=== PATIENT | male | born 1985 | race Caucasian/White ===

== ENCOUNTER 2017-12-23 10:51 | Inpatient (IN) | payer OTHER ==
[2017-12-23 14:16] VITALS: BMI 36.0
--- NOTE | 2017-12-23 15:37 | HP ---
COWS - Scale Resting Pulse: 2= [place] 101-120 Sweatin=Flushed/Facial Moisture Restless Observation: 3= Extraneous Movement Pupil Size: 1= Pupils >than Normal Bone or Joint Aches: 2= Severe Diffuse Aches Runny Nose/ Eye Tearin= Runny Nose/Eyes GI Upset > 30mins: 2= Nausea/Diarrhea Tremor Observation: 2= Slight Tremor Visible Yawning Observation: 1= 1-2x During Session Anxiety or Irritability: 2=Irritable/Anxious Goose Flesh Skin: 3=Piloerection COWS Score: 22 Admission ROS S - HPI Chief Complaint: "' I'm addicted to heroin and opiates and I'm trying to get off" Allergies/Adverse Reactions: Allergies Allergy/AdvReac Type Severity Reaction Status Date / Time No Known Allergies Allergy Verified 12/23/17 15:50 History of Present Illness: 32 year old male with longstanding h/o opiod and xanax dependence presents for detox. He reports sobriety for 1 year with relapse early this year. He has had previous rehab as well. This is his 1st treatment at [facility]. Exam Limitations: No Limitations - Ebola screening Have you traveled outside of the country in the last 21 days: No (N) Have you had contact with anyone from an Ebola affected area: No Have you been sick,other than usual withdrawal symptoms: No Do you have a fever: No - Review of Systems Constitutional: Chills, Loss of Appetite, Changes in sleep EENT: reports: Blurred Vision, Nose Congestion Respiratory: reports: Cough, SOB with Exertion Cardiac: reports: Chest Pain (on and off) GI: reports: Nausea, Poor Appetite, Poor Fluid Intake, Abdominal cramping : reports: No Symptoms Reported Musculoskeletal: reports: Joint Pain, Muscle Pain, Muscle Weakness Integumentary: reports: No Symptoms Reported Neuro: reports: Tremors Endocrine: reports: No Symptoms Reported Hematology: reports: Anemia Psychiatric: reports: Anxious, Depressed Patient History - Patient Medical History Hx Anemia: No Hx Asthma: No Hx Chronic Obstructive Pulmonary Disease (COPD): No Hx Cancer: No Hx Cardiac Disorders: No Hx Congestive Heart Failure: No Hx Hypertension: No Hx Hypercholesterolemia: No Hx Pacemaker: No HX Cerebrovascular Accident: No Hx Seizures: No Hx Dementia: No Hx Diabetes: No Hx Gastrointestinal Disorders: No Hx Liver Disease: No Hx Genitourinary Disorders: No Hx Sexually Transmitted Disorders: No Hx Renal Disease (ESRD): No Hx Thyroid Disease: No Hx Human Immunodeficiency Virus (HIV): No Hx Hepatitis C: No Hx Depression: Yes Hx Suicide Attempt: No Hx Bipolar Disorder: No Hx Schizophrenia: No - Patient Surgical History Past Surgical History: No - PPD History Previous Implant?: Yes Documented Results: Negative w/o proof Implanted On Prior [facility] Admission?: No PPD to be Administered?: Yes - Smoking Cessation Smoking history: Current every day smoker Have you smoked in the past 12 months: Yes Aproximately how many cigarettes per day: 20 Hx Chewing Tobacco Use: No Initiated information on smoking cessation: Yes 'Breaking Loose' booklet given: 12/23/17 - Substance & Tx. History Hx Alcohol Use: No Hx Substance Use: Yes Substance Use Type: Heroin, Tranquilizers Hx Substance Use Treatment: Yes - Substances Abused Heroin Route: Injection Frequency: Daily Amount used: 10 bags Age of first use: 15 Date of Last Use: 12/23/17 Alprazolam (Xanax) Route: Oral Frequency: Daily Amount used: 4mg Age of first use: 19 Date of Last Use: 12/23/17 Admission Physical Exam BHS - Vital Signs Vital Signs: Vital Signs - 24 hr 12/23/17 14:14 Temperature 97.6 F Pulse Rate 109 H Respiratory 20 Rate Blood Pressure 155/81 - Physical General Appearance: Yes: No Apparent Distress, Appropriately Dressed HEENTM: Yes: EOMI, Hearing grossly Normal, Normal ENT Inspection, Normocephalic , Normal Voice, MICHAEL Respiratory: Yes: Chest Non-Tender, Lungs Clear, No Respiratory Distress, No Accessory Muscle Use Neck: Yes: No masses,lesions,Nodules, Supple Breast: Yes: Breast Exam Deferred Cardiology: Yes: Regular Rhythm, Regular Rate, S1, S2 Abdominal: Yes: Normal Bowel Sounds, Non Tender, Soft Genitourinary: Yes: Within Normal Limits Back: Yes: Normal Inspection Extremities: Yes: Normal Capillary Refill, Normal Inspection, Non-Tender Neurological: Yes: 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 NML intact, Fully Oriented, Alert, Normal Response Integumentary: Yes: Normal Color, 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) Lymphatic: Yes: Within Normal Limits - Diagnostic (1) Nicotine dependence unspecified, with withdrawal Current Visit: Yes Status: Acute Qualifiers: Nicotine product type: cigarettes Qualified Code(s): F17.213 - Nicotine dependence, cigarettes, with withdrawal (2) Opioid dependence Current Visit: Yes Status: Acute Qualifiers: Substance use status: uncomplicated Qualified Code(s): F11.20 - Opioid dependence, uncomplicated (3) Sedative hypnotic or anxiolytic dependence Current Visit: Yes Status: Acute (4) GERD (gastroesophageal reflux disease) Current Visit: Yes Status: Acute Qualifiers: Esophagitis presence: without esophagitis Qualified Code(s): K21.9 - Gastro -esophageal reflux disease without esophagitis Cleared for Admission BHS - Detox or Rehab S Level of Care: Medically Managed Detox Regimen/Protocol: Methadone/Valium S Breath Alcohol Content Breath Alcohol Content: 0 Urine Drug Screen - Results Drug Screen Negative: No Urine Drug Screen Results: THC-Marijuana, OPI-Opiates, MTD-Methadone, TCA- Tricyclic Antidepress, OXY-Oxycodone
[2017-12-23] MEDS ORDERED: diazePAM 5 MG TABLET PO ONE (15:51)
[2017-12-23] MEDS ORDERED: MENTHOL/PHENOL 1 EACH UD MM PRN (15:51)
[2017-12-23] MEDS ORDERED: MAG HYDROX/AL HYDROX/SIMETH 30 ML UNIT-DOSE CUP PO PRN (15:51)
[2017-12-23] MEDS ORDERED: guaiFENesin/D-METHORPHAN HB 10 ML UNIT-DOSE CUPS PO PRN (15:51)
[2017-12-23] MEDS ORDERED: LOPERAMIDE HCL 2 MG CAPSULE PO PRN (15:51)
[2017-12-23] MEDS ORDERED: MAGNESIUM HYDROX 2400MG/30ML ORAL SUSPENSION 30 ML CUP PO PRN (15:51)
[2017-12-23] MEDS ORDERED: P-EPHED 60MG/TRIPROLIDI 2.5MG TABLET PO PRN (15:51)
[2017-12-23] MEDS ORDERED: METHADONE HCL 10 MG TABLET (FOR DETOX USE ONLY) PO ONE ×2 (15:51→23:00)
[2017-12-23] MEDS ORDERED: NICOTINE POLACRILEX 2 MG GUM BUC PRN (15:51)
[2017-12-23] MEDS ORDERED: MAGNESIUM CITRATE 300 ML BOTTLE PO PRN (15:51)
[2017-12-23] MEDS: hydrOXYzine PAMOATE 50 MG CAPSULE (FP) PO PRN (19:50)
[2017-12-23] MEDS: ACETAMINOPHEN 325 MG TABLET (FP) PO PRN (19:51)
[2017-12-23] MEDS: NICOTINE 14 MG/24 HOURS TOPICAL PATCH TD SCH (19:52)
[2017-12-23] MEDS: diazePAM 5 MG TABLET PO SCH (22:10)
[2017-12-23] MEDS: THIAMINE HCL 100 MG TABLET (FP) PO SCH (22:10)
[2017-12-23] MEDS: MELATONIN 5 MG TABLETS PO PRN (22:11)
[2017-12-24 02:09] LABS: URINE APPEARANCE TURBID; URINE BILIRUBIN NEGATIVE (<2.0 mg/dL); URINE COLOR YELLOW; URINE GLUCOSE (UA) NEGATIVE (NEGATIVE); URINE KETONE NEGATIVE (NEGATIVE); URINE LEUK ESTERASE NEGATIVE (NEGATIVE); URINE NITRITE NEGATIVE (NEGATIVE)
[2017-12-24 02:34] LABS: URINE PROTEIN 1+ (NEGATIVE)
[2017-12-24 02:46] LABS: URINE HYALINE CAST 31 /lpf
[2017-12-24] MEDS: diazePAM 5 MG TABLET PO SCH ×3 (06:06→22:28)
[2017-12-24] MEDS: ACETAMINOPHEN 325 MG TABLET (FP) PO PRN ×2 (06:08→18:40)
--- NOTE | 2017-12-24 07:52 | CONSULT ---
[facility] Psychiatric Consult - Data Date of interview: 12/24/17 Admission source: Self-Referred Identifying data: Mr Luna is a 32 years old single male, unemployed with no source of income, domiciled living with his father seeking detox treatment for opioid and benzodiazepine Substance Abuse History: Reports history of heroin and xanax use. Refer to addiction counselor's summary for further information Medical History: Unremarkable. Smoked cigarettes 1ppd Psychiatric History: Denies history of previous psychiatric treatment. However, reports feeling depressed, anxious and sleeping poorly Physical/Sexual Abuse/Trauma History: Denies history of emotional, physical or sexual abuse as well as DV relationship Additional Comment: Reports history of one previous misdemeanor arrest. Denies being on probation at present Mental Status Exam - Mental Status Exam Alert and Oriented to: Time, Place, Person Cognitive Function: Fair Patient Appearance: Well Groomed Mood: Depressed, Anxious Affect: Appropriate Patient Behavior: Cooperative Speech Pattern: Clear Voice Loudness: Normal Thought Process: Intact, Goal Oriented Thought Disorder: Not Present Hallucinations: Denies Suicidal Ideation: Denies Homicidal Ideation: Denies Insight/Judgement: Fair Sleep: Poorly Appetite: Good Muscle strength/Tone: Normal Gait/Station: Normal Psychiatric Findings - Problem List ([place] 1, 2,3) (1) Substance induced mood disorder Current Visit: Yes Status: Acute (2) Substance-induced sleep disorder Current Visit: Yes Status: Acute (3) Opioid dependence with withdrawal Current Visit: Yes Status: Acute (4) Sedative hypnotic or anxiolytic dependence Current Visit: Yes Status: Acute (5) Nicotine dependence Current Visit: Yes Status: Chronic - Initial Treatment Plan Initial Treatment Plan: 1) Start Ambien 10 mg po HS prn for insomnia. 2) Continue inpatient detoxification
[2017-12-24] MEDS ORDERED: METHADONE HCL 10 MG TABLET (FOR DETOX USE ONLY) PO SCH (10:00)
[2017-12-24 10:13] LABS: MCHC 30.2 g/dl (32.0-35.9); PLATELET COUNT 482 K/MM3 (134-434)
[2017-12-24 10:17] LABS: HEMATOCRIT 22.4 % (35.4-49); MEAN CELL VOLUME 60.5 fl (80-96); MEAN PLT VOLUME 8.2 fl (7.5-11.1); RDW 19.8 % (11.9-15.9); WHITE BLOOD COUNT 20.3 K/mm3 (4.0-10.0)
[2017-12-24 10:19] LABS: MCH 18.2 pg (25.7-33.7)
[2017-12-24 10:20] LABS: ALBUMIN 1.7 g/dl (3.4-5.0); ANION GAP 10 (8-16); BILIRUBIN,TOTAL 0.6 mg/dL (0.2-1.0); BLOOD UREA NITROGEN 12 mg/dL (7-18); CALCIUM 7.9 mg/dL (8.5-10.1); CHLORIDE 104 mmol/L (98-107); CO2 28 mmol/L (21-32); CREATININE 0.9 mg/dL (0.7-1.3); GLUCOSE,RANDOM 106 mg/dL (74-106); SGPT/ALT 19 U/L (12-78); SODIUM 142 mmol/L (136-145); TOT PROT 6.7 g/dl (6.4-8.2)
[2017-12-24 10:21] LABS: ALK PHOS 311 U/L (45-117)
[2017-12-24 10:22] LABS: HEMOGLOBIN 6.8 GM/dL (11.7-16.9); POTASSIUM 4.1 mmol/L (3.5-5.1); SGOT/AST 31 U/L (15-37)
[2017-12-24] MEDS: diazePAM 5 MG TABLET PO PRN ×2 (10:55→18:42)
[2017-12-24] MEDS: NICOTINE 14 MG/24 HOURS TOPICAL PATCH TD SCH (10:55)
[2017-12-24] MEDS: PRENATAL VITAMINS W/ FOLIC ACID TABLET (FP) PO SCH (10:55)
--- NOTE | 2017-12-24 17:30 | PN ---
BHS COWS - Scale Resting Pulse: 1= [place] 81-100 Sweatin= Chills/Flushing Restless Observation: 0= Sits Still Pupil Size: 0= Normal to Room Light Bone or Joint Aches: 0= None Runny Nose/ Eye Tearin= None GI Upset > 30mins: 0= None Tremor Observation of Outstretched Hands: 1= Tremor [place], Not Seen Yawning Observation: 0= None Anxiety or Irritability: 0= None Goose Flesh Skin: 0=Smooth Skin COWS Score: 3 BHS Progress Note (SOAP) Subjective: pt states he is feeling fine and is getting some needed rest- denies chest pain , denies bleeding- now and no recent bleeding, denies h/o anemia, Objective: 12/24/17 17:25 Vital Signs - 24 hr 12/23/17 12/24/17 12/24/17 23:01 00:30 06:38 Temperature 98.9 F 97.1 F L Pulse Rate 106 H 120 H Respiratory 21 18 18 Rate Blood Pressure 127/79 136/78 12/24/17 12/24/17 12/24/17 09:28 13:45 15:54 Temperature 100.9 F H 98.1 F 98.9 F Pulse Rate 104 H 97 H Respiratory 20 20 Rate Blood Pressure 120/75 105/64 Laboratory Tests 12/24/17 12/24/17 12/24/17 01:00 07:45 07:45 WBC 20.3 H RBC 3.70 L Hgb 6.8 L* Hct 22.4 L MCV 60.5 L MCH 18.2 L MCHC 30.2 L RDW 19.8 H Plt Count 482 H MPV 8.2 Sodium 142 Potassium 4.1 Chloride 104 Carbon Dioxide 28 Anion Gap 10 BUN 12 Creatinine 0.9 Creat Clearance w eGFR > 60 Random Glucose 106 Calcium 7.9 L Total Bilirubin 0.6 AST 31 ALT 19 Alkaline Phosphatase 311 H Total Protein 6.7 Albumin 1.7 L Urine Color Yellow Urine Appearance Turbid Urine pH 5.0 Ur Specific [place] 1.027 Urine Protein 1+ H Urine Glucose (UA) Negative Urine Ketones Negative Urine Blood Negative Urine Nitrite Negative Urine Bilirubin Negative Urine Urobilinogen 2.0 Ur Leukocyte Esterase Negative Urine WBC (Auto) 69 Urine RBC (Auto) 2 Hyaline Casts 31 RPR Titer HIV 1&2 Antibody Screen HIV P24 Antigen 07/29/18 07/29/18 07:45 07:45 WBC RBC Hgb Hct MCV MCH MCHC RDW Plt Count MPV Sodium Potassium Chloride Carbon Dioxide Anion Gap BUN Creatinine Creat Clearance w eGFR Random Glucose Calcium Total Bilirubin AST ALT Alkaline Phosphatase Total Protein Albumin Urine Color Urine Appearance Urine pH Ur Specific [place] Urine Protein Urine Glucose (UA) Urine Ketones Urine Blood Urine Nitrite Urine Bilirubin Urine Urobilinogen Ur Leukocyte Esterase Urine WBC (Auto) Urine RBC (Auto) Hyaline Casts RPR Titer Nonreactive HIV 1&2 Antibody Screen Negative HIV P24 Antigen Negative severe anemia-Hct 24 high pulse rate lungs clear heart tachy, regular rhythm Assessment: 12/24/17 17:24 32 year old male with longstanding h/o opiod and xanax dependence sever anemia- d/w pt the need for evaluatio of this at the hospital- pt refused to go to hospital-saying he is feeling fine and that it took him a long time to get a detox bed and needs to continue to rest. pt states will let staff know if he needs any further assitance. 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 refusal signed labs ordered for tomorrow 12/24/17 17:30
[2017-12-24] MEDS: MELATONIN 5 MG TABLETS PO PRN (22:28)
[2017-12-24] MEDS: THIAMINE HCL 100 MG TABLET (FP) PO SCH (22:28)
[2017-12-24] MEDS: IBUPROFEN 400 MG TABLET (FP) PO PRN (22:29)
[2017-12-25] MEDS: hydrOXYzine PAMOATE 50 MG CAPSULE (FP) PO PRN (08:40)
[2017-12-25] MEDS ORDERED: METHADONE HCL 5 MG TABLET (FOR DETOX USE ONLY) PO SCH (10:00)
[2017-12-25] MEDS: diazePAM 5 MG TABLET PO SCH ×2 (10:24→22:30)
[2017-12-25] MEDS: PRENATAL VITAMINS W/ FOLIC ACID TABLET (FP) PO SCH (10:24)
[2017-12-25] MEDS: NICOTINE 14 MG/24 HOURS TOPICAL PATCH TD SCH (10:25)
--- NOTE | 2017-12-25 10:53 | EKG ---
Test Reason : Blood Pressure : / mmHG Vent. Rate : 115 BPM Atrial Rate : 115 BPM P-R Int : 098 ms QRS Dur : 094 ms QT Int : 296 ms P-R-T Axes : 022 -02 021 degrees QTc Int : 409 ms SINUS TACHYCARDIA WITH SHORT MO WITH OCCASIONAL PREMATURE VENTRICULAR COMPLEXES WITH JUNCTIONAL ESCAPE COMPLEXES NONSPECIFIC ST ABNORMALITY ABNORMAL ECG NO PREVIOUS ECGS AVAILABLE Confirmed by SAVANNA ALLISON MD ([id number]) on 12/25/2017 10:53:14 AM Referred By: Confirmed By:SAVANNA ALLISON MD
[2017-12-25 11:07] LABS: BASO % 0.2 % (0-2.0); EOS % 0.2 % (0-4.5); HEMATOCRIT 22.9 % (35.4-49); LYMPH % 9.7 % (8-40); MCHC 30.1 g/dl (32.0-35.9); MEAN CELL VOLUME 60.1 fl (80-96); MEAN PLT VOLUME 8.7 fl (7.5-11.1); MONO % 9.6 % (3.8-10.2); NEUT % 80.3 % (42.8-82.8); PLATELET COUNT 483 K/MM3 (134-434); RBC 3.81 M/mm3 (4.00-5.60); RDW 19.9 % (11.9-15.9); WHITE BLOOD COUNT 14.3 K/mm3 (4.0-10.0)
[2017-12-25 11:21] LABS: MCH 18.1 pg (25.7-33.7)
[2017-12-25 11:28] LABS: HEMOGLOBIN 6.9 GM/dL (11.7-16.9)
--- NOTE | 2017-12-25 11:58 | PN ---
[facility] CIWA - CIWA Score Nausea/Vomitin-No Nausea/No Vomiting Muscle Tremors: 3 Anxiety: 4-Mod. Anxious/Guarded Agitation: 3 Paroxysmal Sweats: 1-Minimal Palms Moist Orientation: 0-Oriented Tacttile Disturbances: 0-None Auditory Disturbances: 0-None Visual Disturbances: 0-None Headache: 0-None Present CIWA-Ar Total Score: 11 BHS COWS - Scale Resting Pulse: 2= [place] 101-120 Sweatin= No chills or Flushing Restless Observation: 0= Sits Still Pupil Size: 2= Moderately Dilated Bone or Joint Aches: 1= Mild Discomfort Runny Nose/ Eye Tearin= None GI Upset > 30mins: 0= None Tremor Observation of Outstretched Hands: 2= Slight Tremor Visible Yawning Observation: 1= 1-2x During Session Anxiety or Irritability: 1=Feels Anxious/Irritable Goose Flesh Skin: 0=Smooth Skin COWS Score: 9 [facility] Progress Note (SOAP) Subjective: PT REPORTS ANXIETY AND INTERMITTENT SLEEP. DENIES CHEST PAIN, DIZZINESS OR HEADACHE. Objective: 12/25/17 11:56 Vital Signs 12/25/17 12/25/17 06:24 09:25 Temperature 97.1 F L 98.6 F Pulse Rate 107 H 96 H Respiratory 20 20 Rate Blood Pressure 133/75 101/69 Laboratory Tests 12/24/17 12/24/17 12/24/17 01:00 07:45 07:45 WBC 20.3 H RBC 3.70 L Hgb 6.8 L* Hct 22.4 L MCV 60.5 L MCH 18.2 L MCHC 30.2 L RDW 19.8 H Plt Count 482 H MPV 8.2 Absolute Neuts (auto) Neutrophils % Lymphocytes % Monocytes % Eosinophils % Basophils % Nucleated RBC % Sodium 142 Potassium 4.1 Chloride 104 Carbon Dioxide 28 Anion Gap 10 BUN 12 Creatinine 0.9 Creat Clearance w eGFR > 60 Random Glucose 106 Calcium 7.9 L Total Bilirubin 0.6 AST 31 ALT 19 Alkaline Phosphatase 311 H Total Protein 6.7 Albumin 1.7 L Serum Folate Urine Color Yellow Urine Appearance Turbid Urine pH 5.0 Ur Specific [place] 1.027 Urine Protein 1+ H Urine Glucose (UA) Negative Urine Ketones Negative Urine Blood Negative Urine Nitrite Negative Urine Bilirubin Negative Urine Urobilinogen 2.0 Ur Leukocyte Esterase Negative Urine WBC (Auto) 69 Urine RBC (Auto) 2 Hyaline Casts 31 RPR Titer HIV 1&2 Antibody Screen HIV P24 Antigen 12/24/17 12/24/17 12/25/17 07:45 07:45 07:00 WBC 14.3 H RBC 3.81 L Hgb 6.9 L* Hct 22.9 L MCV 60.1 L MCH 18.1 L MCHC 30.1 L RDW 19.9 H Plt Count 483 H MPV 8.7 Absolute Neuts (auto) 11.5 Neutrophils % 80.3 Lymphocytes % 9.7 Monocytes % 9.6 Eosinophils % 0.2 Basophils % 0.2 Nucleated RBC % 0 Sodium Potassium Chloride Carbon Dioxide Anion Gap BUN Creatinine Creat Clearance w eGFR Random Glucose Calcium Total Bilirubin AST ALT Alkaline Phosphatase Total Protein Albumin Serum Folate Urine Color Urine Appearance Urine pH Ur Specific [place] Urine Protein Urine Glucose (UA) Urine Ketones Urine Blood Urine Nitrite Urine Bilirubin Urine Urobilinogen Ur Leukocyte Esterase Urine WBC (Auto) Urine RBC (Auto) Hyaline Casts RPR Titer Nonreactive HIV 1&2 Antibody Screen Negative HIV P24 Antigen Negative 12/25/17 07:00 WBC RBC Hgb Hct MCV MCH MCHC RDW Plt Count MPV Absolute Neuts (auto) Neutrophils % Lymphocytes % Monocytes % Eosinophils % Basophils % Nucleated RBC % Sodium Potassium Chloride Carbon Dioxide Anion Gap BUN Creatinine Creat Clearance w eGFR Random Glucose Calcium Total Bilirubin AST ALT Alkaline Phosphatase Total Protein Albumin Serum Folate 5 Urine Color Urine Appearance Urine pH Ur Specific [place] Urine Protein Urine Glucose (UA) Urine Ketones Urine Blood Urine Nitrite Urine Bilirubin Urine Urobilinogen Ur Leukocyte Esterase Urine WBC (Auto) Urine RBC (Auto) Hyaline Casts RPR Titer HIV 1&2 Antibody Screen HIV P24 Antigen Assessment: 12/25/17 11:57 WITHDRAWAL SX Plan: CONTINUE DETOX
[2017-12-25] MEDS: FERROUS SO4 325 MG TABLET (FP) PO SCH ×2 (12:32→17:58)
[2017-12-25 13:00] LABS: ANISOCYTOSIS 1+; MACROCYTOSIS 1+
[2017-12-25 13:01] LABS: OVALOCYTE 1+
--- NOTE | 2017-12-25 14:49 | PN ---
[facility] Progress Note Note: SPOKE TO PATIENT AMINATA TODAY RE:NEED TO FOLOW UP AT [facility] ER FOR ANEMIA WORK-UP AND TREATMENT. PT REFUSED STATING 'I AM LEAVING TOMORROW ANYWAY. I'LL JUST GO TO THE HOSPITAL ON MY OWN AFTER I LEAVE". REASSURED PT HE WILL BE GOING TO SAME [facility] BUT AT [facility] AND NOTHING ABOUT HIS DETOX WILL CHANGE IF WE SEND HIM OVER BUT HE DECLINED TODAY AGAIN. PT REPORTS HE HAS NO PMD BECAUSE HE RECENTLY MOVED FROM [place] WHERE HE HAD BEEN LIVING SINCE PAST TWO YEARS TO [place] 2 MONTHS AGO. PT STATES HE LIVES CLOSE TO [facility] AND MIGHT BE GOING THERE AFTER DISCHARGE. PT ALSO REFUSED TO F/U WITH ABNORMAL LAB YESTERDAY(SEE PHYSICIAN NOTE, 12/24/17) . DENIES DIZZINESS,CHEST PAIN OR FATIGUE. PT WAS SEEN IN BED BUT REPORTS OOB TO MED WINDOW AND DAY ROOM NEEDED WITH NO DISCOMFORT. Laboratory Tests 12/24/17 12/24/17 12/24/17 01:00 07:45 07:45 WBC 20.3 H RBC 3.70 L Hgb 6.8 L* Hct 22.4 L MCV 60.5 L MCH 18.2 L MCHC 30.2 L RDW 19.8 H Plt Count 482 H MPV 8.2 Absolute Neuts (auto) Neutrophils % Lymphocytes % Monocytes % Eosinophils % Basophils % Nucleated RBC % Hypochromia Anisocytosis Microcytosis Macrocytosis Ovalocytes Sodium 142 Potassium 4.1 Chloride 104 Carbon Dioxide 28 Anion Gap 10 BUN 12 Creatinine 0.9 Creat Clearance w eGFR > 60 Random Glucose 106 Calcium 7.9 L Total Bilirubin 0.6 AST 31 ALT 19 Alkaline Phosphatase 311 H Total Protein 6.7 Albumin 1.7 L Vitamin B12 Serum Folate Urine Color Yellow Urine Appearance Turbid Urine pH 5.0 Ur Specific [place] 1.027 Urine Protein 1+ H Urine Glucose (UA) Negative Urine Ketones Negative Urine Blood Negative Urine Nitrite Negative Urine Bilirubin Negative Urine Urobilinogen 2.0 Ur Leukocyte Esterase Negative Urine WBC (Auto) 69 Urine RBC (Auto) 2 Hyaline Casts 31 RPR Titer HIV 1&2 Antibody Screen HIV P24 Antigen 12/24/17 12/24/17 12/25/17 07:45 07:45 07:00 WBC 14.3 H RBC 3.81 L Hgb 6.9 L* Hct 22.9 L MCV 60.1 L MCH 18.1 L MCHC 30.1 L RDW 19.9 H Plt Count 483 H MPV 8.7 Absolute Neuts (auto) 11.5 Neutrophils % 80.3 Lymphocytes % 9.7 Monocytes % 9.6 Eosinophils % 0.2 Basophils % 0.2 Nucleated RBC % 0 Hypochromia 1+ Anisocytosis 1+ Microcytosis 1+ Macrocytosis 1+ Ovalocytes 1+ Sodium Potassium Chloride Carbon Dioxide Anion Gap BUN Creatinine Creat Clearance w eGFR Random Glucose Calcium Total Bilirubin AST ALT Alkaline Phosphatase Total Protein Albumin Vitamin B12 Serum Folate Urine Color Urine Appearance Urine pH Ur Specific [place] Urine Protein Urine Glucose (UA) Urine Ketones Urine Blood Urine Nitrite Urine Bilirubin Urine Urobilinogen Ur Leukocyte Esterase Urine WBC (Auto) Urine RBC (Auto) Hyaline Casts RPR Titer Nonreactive HIV 1&2 Antibody Screen Negative HIV P24 Antigen Negative 12/25/17 07:00 WBC RBC Hgb Hct MCV MCH MCHC RDW Plt Count MPV Absolute Neuts (auto) Neutrophils % Lymphocytes % Monocytes % Eosinophils % Basophils % Nucleated RBC % Hypochromia Anisocytosis Microcytosis Macrocytosis Ovalocytes Sodium Potassium Chloride Carbon Dioxide Anion Gap BUN Creatinine Creat Clearance w eGFR Random Glucose Calcium Total Bilirubin AST ALT Alkaline Phosphatase Total Protein Albumin Vitamin B12 1751 H Serum Folate 5 Urine Color Urine Appearance Urine pH Ur Specific [place] Urine Protein Urine Glucose (UA) Urine Ketones Urine Blood Urine Nitrite Urine Bilirubin Urine Urobilinogen Ur Leukocyte Esterase Urine WBC (Auto) Urine RBC (Auto) Hyaline Casts RPR Titer HIV 1&2 Antibody Screen HIV P24 Antigen REPEAT CBC NOT SIGNIFICANTLY DIFFERENT FROM PREVIOUS RESULT. A COPY OF LAB RESULTS WILL BE GIVEN TO PATIENT. DISCUSSED WITH THIS PT WHO SAYS HE WILL FOLLOW UP ON HIS OWN. PLAN: FEOSOL ORDERED. MONITOR AND MAINTAIN SAFETY. TRANSFER TO ER IF NEED BE.
[2017-12-25] MEDS: ACETAMINOPHEN 325 MG TABLET (FP) PO PRN (17:59)
[2017-12-25 20:46] LABS: URINE APPEARANCE TURBID; URINE BILIRUBIN NEGATIVE (<2.0 mg/dL); URINE COLOR AMBER; URINE GLUCOSE (UA) NEGATIVE (NEGATIVE); URINE KETONE NEGATIVE (NEGATIVE); URINE LEUK ESTERASE NEGATIVE (NEGATIVE); URINE NITRITE NEGATIVE (NEGATIVE); URINE UROBILINOGEN 4.0 E.U/dl mg/dL (0.2-1.0)
[2017-12-25 20:49] LABS: URINE PROTEIN 1+ (NEGATIVE)
[2017-12-25 20:51] LABS: URINE MUCUS MANY
[2017-12-25] MEDS: IBUPROFEN 400 MG TABLET (FP) PO PRN (22:29)
[2017-12-25] MEDS: THIAMINE HCL 100 MG TABLET (FP) PO SCH (22:30)
[2017-12-26 06:28] VITALS: BP 105/66; PULSE 92; TEMP 97.2
[2017-12-26] MEDS: diazePAM 5 MG TABLET PO PRN (06:28)
[2017-12-26] MEDS: FERROUS SO4 325 MG TABLET (FP) PO SCH (07:54)
--- NOTE | 2017-12-26 14:27 | PN ---
[facility] Progress Note (SOAP) Subjective: PT DECLINED TO COMPLETE DETOX STATING HE WANTS TO LEAVE TODAY WITH HIS FAMILY MEMBER HERE SO HE CAN TAKE CARE OF HIS MEDICAL NEEDS. PT WAS GIVEN A COPY OF HIS LABS AND INSTRUCTED TO GO TO [facility] ER AT [facility] TODAY FOR WORKUP AND POSSIBLE TREATMENT. PT IS ALERT O X 3. OOB AMBULATED WITH STEADY GAIT AND DENIED DIZZINESS,CHEST PAIN OR ANY OTHER DEFICIT. Objective: 12/26/17 14:24 Vital Signs 12/26/17 06:28 Temperature 97.2 F L Pulse Rate 92 H Respiratory 18 Rate Blood Pressure 105/66 Laboratory Tests 12/24/17 12/24/17 12/24/17 01:00 07:45 07:45 WBC 20.3 H RBC 3.70 L Hgb 6.8 L* Hct 22.4 L MCV 60.5 L MCH 18.2 L MCHC 30.2 L RDW 19.8 H Plt Count 482 H MPV 8.2 Absolute Neuts (auto) Neutrophils % Lymphocytes % Monocytes % Eosinophils % Basophils % Nucleated RBC % Hypochromia Anisocytosis Microcytosis Macrocytosis Ovalocytes Sodium 142 Potassium 4.1 Chloride 104 Carbon Dioxide 28 Anion Gap 10 BUN 12 Creatinine 0.9 Creat Clearance w eGFR > 60 Random Glucose 106 Calcium 7.9 L Iron Total Bilirubin 0.6 AST 31 ALT 19 Alkaline Phosphatase 311 H Total Protein 6.7 Albumin 1.7 L Vitamin B12 Serum Folate Urine Color Yellow Urine Appearance Turbid Urine pH 5.0 Ur Specific [place] 1.027 Urine Protein 1+ H Urine Glucose (UA) Negative Urine Ketones Negative Urine Blood Negative Urine Nitrite Negative Urine Bilirubin Negative Urine Urobilinogen 2.0 Ur Leukocyte Esterase Negative Urine WBC (Auto) 69 Urine RBC (Auto) 2 Hyaline Casts 31 Urine Mucus RPR Titer HIV 1&2 Antibody Screen HIV P24 Antigen 12/24/17 12/24/17 12/25/17 07:45 07:45 07:00 WBC 14.3 H RBC 3.81 L Hgb 6.9 L* Hct 22.9 L MCV 60.1 L MCH 18.1 L MCHC 30.1 L RDW 19.9 H Plt Count 483 H MPV 8.7 Absolute Neuts (auto) 11.5 Neutrophils % 80.3 Lymphocytes % 9.7 Monocytes % 9.6 Eosinophils % 0.2 Basophils % 0.2 Nucleated RBC % 0 Hypochromia 1+ Anisocytosis 1+ Microcytosis 1+ Macrocytosis 1+ Ovalocytes 1+ Sodium Potassium Chloride Carbon Dioxide Anion Gap BUN Creatinine Creat Clearance w eGFR Random Glucose Calcium Iron Total Bilirubin AST ALT Alkaline Phosphatase Total Protein Albumin Vitamin B12 Serum Folate Urine Color Urine Appearance Urine pH Ur Specific [place] Urine Protein Urine Glucose (UA) Urine Ketones Urine Blood Urine Nitrite Urine Bilirubin Urine Urobilinogen Ur Leukocyte Esterase Urine WBC (Auto) Urine RBC (Auto) Hyaline Casts Urine Mucus RPR Titer Nonreactive HIV 1&2 Antibody Screen Negative HIV P24 Antigen Negative 12/25/17 12/25/17 12/25/17 07:00 07:00 20:30 WBC RBC Hgb Hct MCV MCH MCHC RDW Plt Count MPV Absolute Neuts (auto) Neutrophils % Lymphocytes % Monocytes % Eosinophils % Basophils % Nucleated RBC % Hypochromia Anisocytosis Microcytosis Macrocytosis Ovalocytes Sodium Potassium Chloride Carbon Dioxide Anion Gap BUN Creatinine Creat Clearance w eGFR Random Glucose Calcium Iron 10 L Total Bilirubin AST ALT Alkaline Phosphatase Total Protein Albumin Vitamin B12 1751 H Serum Folate 5 Urine Color [place] Urine Appearance Turbid Urine pH 6.0 Ur Specific [place] 1.023 Urine Protein 1+ H Urine Glucose (UA) Negative Urine Ketones Negative Urine Blood Negative Urine Nitrite Negative Urine Bilirubin Negative Urine Urobilinogen 4.0 e.u/dl Ur Leukocyte Esterase Negative Urine WBC (Auto) None Urine RBC (Auto) 1 Hyaline Casts Urine Mucus Many RPR Titer HIV 1&2 Antibody Screen HIV P24 Antigen SERUM IRON 10 Assessment: 12/26/17 14:25 WITHDRAWAL SX SEVER MICROCYTIC IRON DEFICIENCY ANEMIA Plan: PT SIGNED OUT AMA INSTRUCTED PT TO F/U AT [facility].
--- NOTE | 2017-12-26 14:34 | DS ---
[facility] Detox Discharge Summary Admission Date: 12/23/17 Discharge Date: 12/26/17 - History Present History: Opioid Dependence, Sedative Dependence Additional Comments: PT SIGNED OUT AMA FOR PERSONAL REASONS. REFUSED CARE. PT HAS NO PMD AND HAS BEEN GIVEN COPY OF HIS LABS TO FOLLOW UP AT [facility] TODAY FOR MEDICAL CARE. FEOSOL 325 MG PO TID #30 SENT TO [facility] FOR PT TO PICKUP. Pertinent Past History: PLEASE SEE DX BELOW - Physical Exam Results Vital Signs: Vital Signs Temperature 97.2 F L 12/26/17 06:28 Pulse Rate 92 H 12/26/17 06:28 Respiratory Rate 18 12/26/17 06:28 Blood Pressure 105/66 12/26/17 06:28 O2 Sat by Pulse Oximetry (%) Pertinent Admission Physical Exam Findings: WITHDRAWAL SX Laboratory Tests 12/24/17 12/24/17 12/24/17 01:00 07:45 07:45 WBC 20.3 H RBC 3.70 L Hgb 6.8 L* Hct 22.4 L MCV 60.5 L MCH 18.2 L MCHC 30.2 L RDW 19.8 H Plt Count 482 H MPV 8.2 Absolute Neuts (auto) Neutrophils % Lymphocytes % Monocytes % Eosinophils % Basophils % Nucleated RBC % Hypochromia Anisocytosis Microcytosis Macrocytosis Ovalocytes Sodium 142 Potassium 4.1 Chloride 104 Carbon Dioxide 28 Anion Gap 10 BUN 12 Creatinine 0.9 Creat Clearance w eGFR > 60 Random Glucose 106 Calcium 7.9 L Iron Total Bilirubin 0.6 AST 31 ALT 19 Alkaline Phosphatase 311 H Total Protein 6.7 Albumin 1.7 L Vitamin B12 Serum Folate Urine Color Yellow Urine Appearance Turbid Urine pH 5.0 Ur Specific Berry 1.027 Urine Protein 1+ H Urine Glucose (UA) Negative Urine Ketones Negative Urine Blood Negative Urine Nitrite Negative Urine Bilirubin Negative Urine Urobilinogen 2.0 Ur Leukocyte Esterase Negative Urine WBC (Auto) 69 Urine RBC (Auto) 2 Hyaline Casts 31 Urine Mucus RPR Titer HIV 1&2 Antibody Screen HIV P24 Antigen 12/24/17 12/24/17 12/25/17 07:45 07:45 07:00 WBC 14.3 H RBC 3.81 L Hgb 6.9 L* Hct 22.9 L MCV 60.1 L MCH 18.1 L MCHC 30.1 L RDW 19.9 H Plt Count 483 H MPV 8.7 Absolute Neuts (auto) 11.5 Neutrophils % 80.3 Lymphocytes % 9.7 Monocytes % 9.6 Eosinophils % 0.2 Basophils % 0.2 Nucleated RBC % 0 Hypochromia 1+ Anisocytosis 1+ Microcytosis 1+ Macrocytosis 1+ Ovalocytes 1+ Sodium Potassium Chloride Carbon Dioxide Anion Gap BUN Creatinine Creat Clearance w eGFR Random Glucose Calcium Iron Total Bilirubin AST ALT Alkaline Phosphatase Total Protein Albumin Vitamin B12 Serum Folate Urine Color Urine Appearance Urine pH Ur Specific Berry Urine Protein Urine Glucose (UA) Urine Ketones Urine Blood Urine Nitrite Urine Bilirubin Urine Urobilinogen Ur Leukocyte Esterase Urine WBC (Auto) Urine RBC (Auto) Hyaline Casts Urine Mucus RPR Titer Nonreactive HIV 1&2 Antibody Screen Negative HIV P24 Antigen Negative 12/25/17 12/25/17 12/25/17 07:00 07:00 20:30 WBC RBC Hgb Hct MCV MCH MCHC RDW Plt Count MPV Absolute Neuts (auto) Neutrophils % Lymphocytes % Monocytes % Eosinophils % Basophils % Nucleated RBC % Hypochromia Anisocytosis Microcytosis Macrocytosis Ovalocytes Sodium Potassium Chloride Carbon Dioxide Anion Gap BUN Creatinine Creat Clearance w eGFR Random Glucose Calcium Iron 10 L Total Bilirubin AST ALT Alkaline Phosphatase Total Protein Albumin Vitamin B12 1751 H Serum Folate 5 Urine Color Erna Urine Appearance Turbid Urine pH 6.0 Ur Specific Berry 1.023 Urine Protein 1+ H Urine Glucose (UA) Negative Urine Ketones Negative Urine Blood Negative Urine Nitrite Negative Urine Bilirubin Negative Urine Urobilinogen 4.0 e.u/dl Ur Leukocyte Esterase Negative Urine WBC (Auto) None Urine RBC (Auto) 1 Hyaline Casts Urine Mucus Many RPR Titer HIV 1&2 Antibody Screen HIV P24 Antigen COPY OF LAB RESULTS GIVEN TO PATIENT TO FOLLOW UP CARE. - Treatment Hospital Course: Discharged Condition Good - Medication Discharge Medications: Ambulatory Orders Ferrous Sulfate [Feosol] 325 mg PO TIDCM #30 ud 12/26/17 - Diagnosis (1) Anemia Status: Acute Qualifiers: Anemia type: iron deficiency (2) GERD (gastroesophageal reflux disease) Status: Chronic Qualifiers: Esophagitis presence: esophagitis presence not specified Qualified Code(s) : K21.9 - Gastro-esophageal reflux disease without esophagitis (3) Opioid dependence with withdrawal Status: Acute (4) Sedative hypnotic or anxiolytic dependence Status: Acute (5) Nicotine dependence Status: Acute Qualifiers: Nicotine product type: cigarettes Substance use status: in withdrawal Qualified Code(s): F17.213 - Nicotine dependence, cigarettes, with withdrawal - AMA Did Patient Leave Against Medical Advice: Yes (AMA)
[2017-12-27] MEDS ORDERED: diazePAM 5 MG TABLET PO SCH (10:00)
[2017-12-27] MEDS ORDERED: METHADONE HCL 10 MG TABLET (FOR DETOX USE ONLY) PO SCH (10:00)
[2017-12-28] MEDS ORDERED: METHADONE HCL 5 MG TABLET (FOR DETOX USE ONLY) PO SCH (06:00)
== END 2017-12-26 09:50 | disposition left against medical advice (07) | DRG 770 ==
LOC: YASAS 10:51 → Y3N 18:38
PROVIDERS: ADMIT Surgery; ATTEND Surgery
PROC: HZ2ZZZZ Detoxification Services for Substance Abuse Treatment (ICD-10-PCS; principal; 2017-12-23)
DX: F11.23 Opioid dependence with withdrawal (principal); F13.20 Sedative, hypnotic or anxiolytic dependence, uncomplicated; F17.213 Nicotine dependence, cigarettes, with withdrawal; F19.24 Other psychoactive substance dependence with psychoactive substance-induced mood disorder; F19.282 Other psychoactive substance dependence with psychoactive substance-induced sleep disorder; D50.8 Other iron deficiency anemias; K21.9 Gastro-esophageal reflux disease without esophagitis; Z53.29 Procedure and treatment not carried out because of patient's decision for other reasons
CPT/HCPCS: 36415; 80053; 81003; 81015; 82607; 82746; 83540; 85025; 85027; 86593; 87389; 93005; 93010